=== PATIENT | female | born 1935 | race Caucasian/White ===

== ENCOUNTER → 2016-12-03 | Outpatient (CLI) | payer MEDICARE, OTHER ==
--- NOTE | 2016-12-06 13:16 | Diagnostic Imaging Report ---
Left breast mammogram. The current study was also evaluated with a Computer Aided Detection (CAD) system. INDICATION: Screening. No current complaints stated on the questionnaire. COMPARISON: 12/09/2015. The patient had right mastectomy. FINDINGS: The right breast is composed of scattered fibroglandular densities. There are scattered benign-appearing calcifications. Allowing for technique and positional differences, no suspicious change is seen. IMPRESSION: No significant change. ACR BI-RADS Category 2: Benign findings. Result letter will be mailed to the patient. Note: At least 10% of breast cancer is not imaged by mammography. Dictated by: Dictated on workstation # [id number]
== END ==
LOC: RAD 13:20
PROVIDERS: ATTEND Internal Medicine
DX: Z12.31 Encounter for screening mammogram for malignant neoplasm of breast (principal)

== ENCOUNTER 2017-10-21 11:25 | Emergency (ER) | payer MEDICARE, OTHER ==
[~2017-10-21] VITALS: Ht 160 cm; Wt 68.9 kg
--- OUTSIDE RECORDS SUMMARY | 2017-10-21 11:31 | XMS REPORT | Continuity of Care Document ---
Author Author [facility] Organization [facility] Address Unknown Phone Unavailable Allergies Medications Problems Date Dx Coded Attending Type Code Diagnosis Diagnosed By 11/09/2014 CODY CHIN APRN Ot V76.12 11/09/2014 Ot V76.12 11/09/2014 Ot 174.9 11/09/2014 Ot V76.11 11/09/2014 Ot 174.9 11/09/2014 Ot V76.11 11/09/2014 Ot 733.90 11/09/2014 Ot V76.12 11/09/2014 NICOLE OROURKE MD Ot V76.12 11/09/2014 CODY CHIN APRN Ot V76.12 11/25/2014 CODY CHIN APRN Ot V76.12 12/08/2015 Ot 174.9 12/08/2015 Ot V76.11 12/08/2015 Ot 174.9 12/08/2015 Ot V76.11 12/08/2015 Ot 733.90 12/08/2015 Ot V76.12 12/08/2015 NICOLE OROURKE MD Ot V76.12 12/08/2015 CODY CHIN APRN Ot V76.12 12/28/2015 NICOLE OROURKE MD Ot Z12.31 12/03/2016 Ot 174.9 MALIGN NEOPL BREAST NOS 12/03/2016 Ot V76.11 SCRN MAMMO-HIGH RISK PT, MALIGNANT NEOPL 12/03/2016 Ot 733.90 BONE CARTILAGE DIS NOS 12/03/2016 Ot V76.12 OTH SCREEN MAMMO-MALIGN NEOPLASM OF [place] 12/03/2016 NICOLE OROURKE MD Ot V76.12 OTH SCREEN MAMMO-MALIGN NEOPLASM OF [place] 12/03/2016 CODY CHIN APRN Ot V76.12 OTH SCREEN MAMMO-MALIGN NEOPLASM OF [place] 12/03/2016 NICOLE OROURKE MD Ot Z12.31 ENCNTR SCREEN MAMMOGRAM FOR MALIGNANT NE 12/03/2016 NICOLE OROURKE MD Ot Z12.31 ENCNTR SCREEN MAMMOGRAM FOR MALIGNANT NE 12/04/2016 NICOLE OROURKE MD Ot Z12.31 ENCNTR SCREEN MAMMOGRAM FOR MALIGNANT NE 12/04/2016 NICOLE OROURKE MD Ot Z12.31 ENCNTR SCREEN MAMMOGRAM FOR MALIGNANT NE 12/24/2016 NICOLE OROURKE MD Ot Z12.31 ENCNTR SCREEN MAMMOGRAM FOR MALIGNANT NE Procedures Results Encounters ACCT No. Visit Date/Time Discharge Status Pt. Type Provider Facility Loc./Unit Complaint [id number] 12/03/2016 13:20:00 2016 23:59:59 CLS Outpatient NICOLE OROURKE MD [facility] RAD SCREENING [id number] 12/08/2015 09:47:00 2015 23:59:59 CLS Outpatient NICOLE ORUORKE MD [facility] RAD SCREENING [id number] 11/04/2014 11:16:00 2013 23:59:59 CLS Outpatient CODY CHIN APRN [facility] RAD SCREENING [id number] 11/02/2013 10:52:00 2012 23:59:59 CLS Outpatient NICOLE OROURKE MD [facility] RAD ROUTINE [id number] 09/15/2012 09:49:00 Document Registration [id number] 11/29/2011 10:09:00 Document Registration [id number] 09/09/2011 11:18:00 Document Registration [id number] 08/30/2010 13:31:00 Document Registration [id number] 08/25/2009 13:27:00 Document Registration
[2017-10-21] MEDS ORDERED: TETANUS,DIPTH,PERTUSS P/F (BOOSTRIX) 0.5 ML VIAL IM STA (11:37)
[2017-10-21] MEDS ORDERED: SIMV20TA3 PO (11:55)
[2017-10-21] MEDS ORDERED: AMLO5TAB4 PO (11:55)
[2017-10-21] MEDS ORDERED: METO50TA15 PO (11:55)
--- NOTE | 2017-10-21 11:59 | ED Fall/Injury ---
General Chief Complaint: Trauma-Non Activation Stated Complaint: FALL/HEAD INJ Nursing Triage Note: PT TO [facility] WITH A FALL DOWN 2-3 STEPS, CC OF HEMATOMA ON HEAD AND RT HAND AND SHOULDER PAIN, LAC TO RT HAND. DENIES LOC, DENIES NECK PAIN, IN C-COLLAR ON ARRIVAL. Source: patient Exam Limitations: no limitations History of Present Illness Time seen by provider: 11:42 Initial Comments Here with report of fall at home. She apparently tripped on the last couple of steps off her porch and landed on the ground. She has deformed right middle finger as well as a large hematoma on her head. Complains of right shoulder pain. Denies loss of consciousness or pain in the neck. She does have a c- collar in place. Denies hip or pelvis pain, back pain, chest pain or abdominal pain. Location Injury Occurred: HOME Occurred: just prior to arrival (30 minutes ago) Severity: moderate Injuries/Pain Location: head, upper extremity Context: tripped Loss of Consciousness: no loss of consciousness Associated Symptoms (Fall): No Abdominal Pain, No Chest Pain, No Confusion, Headache, No Muscle Spasms, No Neck Pain, No Shortness of Air, No Slurred Speech , No Vision Changes Allergies and Home Medications Allergies Coded Allergies: No Known Drug Allergies (Unverified , 10/21/17) Home Medications Amlodipine Besylate 5 Mg Tablet, 5 MG PO DAILY, (Reported) Lisinopril/Hydrochlorothiazide 1 Each Tablet, 1 EACH PO DAILY, (Reported) Metoprolol Tartrate 50 Mg Tablet, 50 MG PO DAILY, (Reported) Simvastatin 20 Mg Tablet, 20 MG PO DAILY, (Reported) Constitutional: see HPI, No chills, No fever Eyes: No Symptoms Reported Ears, Nose, Mouth, Throat: no symptoms reported Respiratory: no symptoms reported Cardiovascular: no symptoms reported, No chest pain, No edema Gastrointestinal: No nausea, No vomiting Genitourinary: no symptoms reported Musculoskeletal: see HPI, joint pain, muscle pain, No muscle weakness Skin: change in color, lesions (right middle finger) Past Aqnjbiz-Usacap-Vxplkd Hx Patient Social History Alcohol Use: Rarely Uses Alcohol Beverage of Choice: Wine Recreational Drug Use: No Smoking Status: Never a Smoker Recent Foreign Travel: No Contact w/Someone Who Travel: No Recent Infectious Disease Expo: No Recent Hopitalizations: No Physical Abuse: No Sexual Abuse: No Mistreated: No Fear: No Immunizations Up To Date Date of Pneumonia Vaccine: Aug 21, 2016 Date of Influenza Vaccine: Aug 20, 2017 Seasonal Allergies Seasonal Allergies: No Surgeries History of Surgeries: Yes (RT MASTECTOMY) Respiratory History of Respiratory Disorde: No Cardiovascular History of Cardiac Disorders: Yes Cardiac Disorders: Hypertension Neurological History of Neurological Disord: No Reproductive System : No Genitourinary History of Genitourinary Disor: No Gastrointestinal History of Gastrointestinal Di: No Musculoskeletal History of Musculoskeletal Dis: No Endocrine History of Endocrine Disorders: No HEENT History of HEENT Disorders: No Cancer History of Cancer: Yes Cancer: Breast Psychosocial History of Psychiatric Problem: No Suicide Risk Score: 0 Integumentary History of Skin or Integumenta: No Reviewed Nursing Assessment Reviewed/Agree w Nursing PMH: Yes Family Medical History Significant Family History: No Pertinent Family Hx Physical Exam Vital Signs Vital Sign - Last 12Hours 10/21/17 11:41 Temp 96.9 Pulse 51 Resp 20 B/P (MAP) 136/71 (92) O2 Delivery Room Air Capillary Refill : Less Than 3 Seconds General Appearance: WD/WN, no apparent distress HEENT: PERRL/EOMI, pharynx normal Neck: non-tender, supple, normal inspection, other (c-collar remains in place before and after exam.) Cardiovascular: regular rate, rhythm, no murmur Respiratory: lungs clear, normal breath sounds Peripheral Pulses: 2+ Dorsalis Pedis (R), 2+ Left Dors-Pedis (L), 2+ Radial Pulses (R), 2+ Radial Pulses (L) Gastrointestinal: non tender, soft Back: normal inspection, no CVA tenderness, no vertebral tenderness Extremities: no pedal edema, pelvis stable, other (deformity to the right middle finger at the IP joint. Tenderness to palpation to the right shoulder area but not along the humerus or forearm bones. No obvious deformity.) Neurologic/Psychiatric: alert, oriented x 3 Skin: normal color, warm/dry, other (1 cm laceration to the palmar aspect of the right middle finger at the IP joint. Deformity noted.) Pall Mall Coma Score Best Eye Response: (4) Open Spontaneously Best Verbal Response: (5) Oriented Best Motor Response: (6) Obeys Commands Splinting and Joint Reduction : Pre-Proc Neuro Vasc Exam: normal Post-Proc Neuro Vasc Exam: normal Progress Reduced the subluxation of the right third finger at the IP joint Reduction Attempts: 1 Pre-Procedure NV Exam: Yes post joint reduction film: joint reduced Progress Tolerated procedure well. Patient also has third and fourth metacarpal fracture. Splint applied to the hand and fingers. Brian wrap: Yes Arm Sling: Large Hand-Made Type: orthoglass Splint Application: Short Arm Progress/Results/Core Measures Results/Orders My Orders Orders - MARY CRUZ MD Shoulder, Right, 3 Views (10/21/17 11:37) Hand, Right, 3 Views (10/21/17 11:37) Ct Head/Cervical Spine Wo (10/21/17 11:37) Dipht,Pertuss(Acell),Tet Adult (Boostrix (10/21/17 11:37) Lidocaine 2% Injection 20 Ml (Xylocaine (10/21/17 13:22) Ceftriaxone Injection (Rocephin Injectio (10/21/17 13:30) Lidocaine 1% Injection (Xylocaine 1% Inj (10/21/17 13:30) Medications Given in ED Current Medications Medications Dose Ordered Sig/Kaitlin Route Start Time Stop Time Status Last Admin Dose Admin Ceftriaxone Sodium 1,000 mg ONCE ONCE IM 10/21/17 13:30 10/21/17 13:31 DC 10/21/17 13:39 1,000 MG Lidocaine HCl 2.1 ml ONCE ONCE INJ 10/21/17 13:30 10/21/17 13:31 DC 10/21/17 13:39 2.1 ML Vital Signs/I&O Vital Sign - Last 12Hours 10/21/17 10/21/17 10/21/17 10/21/17 11:41 12:25 13:39 13:39 Temp 96.9 96.9 96.9 96.9 Pulse 51 Resp 20 B/P (MAP) 136/71 (92) O2 Delivery Room Air 10/21/17 13:42 Temp 96.9 Blood Pressure Mean: 92 Progress Note : Progress Note Seen and evaluated. CT head and neck ordered. X-ray right shoulder and hand ordered. Tetanus updated. Monitor patient. X-rays complete. 1420: X-rays reviewed. Dislocation subluxation noted. Digital block to right third finger with 2 percent lidocaine completed. Hematoma block of fractures in the mid hand also done with total of approximately 8 mL of lidocaine. Dislocation easily reduced. Short arm gutter splint placed with fingers and 90 flexion and hand slightly flexed. Sling applied. Patient much more comfortable now. No significant findings on CT. Patient does have sinusitis of the right maxillary sinus and has been suffering from this for over a week. Rocephin 1 g IM given in. Patient did have small wound on the dorsal surface that was a flap. This was cleaned with Betasept and covered with antibiotic and dressing prior to splinting. Due to the wound proximity to the open joint, antibiotics are indicated. I did choose Rocephin due to the fact that she has coexisting sinusitis and will need treatment for that. All the findings and concerns were discussed with the patient and family who agree. Discharged home with return precautions. Patient verbalize understanding instructions and agreement with plan. Diagnostic Imaging Diagonstic Imaging: Xray Plain Films/CT/US/NM/MRI: hand Comments [facility]. [place], [place] NAME: JAS GARCIA [facility] REC#: [id number] PT STATUS: REG ER : 1935 PHYSICIAN: MARY CRUZ MD ADMIT DATE: 10/21/17/ER Draft Date of Exam:10/21/17 HAND, RIGHT, 3 VIEWS INDICATION: Fall with right hand injury. TECHNIQUE: AP, oblique, and lateral views of the right hand were obtained. FINDINGS: There are slightly displaced oblique fractures through the mid shafts of the third and fourth metacarpal bones. No definite intra-articular extension is identified. Note is made of advanced degenerative change within the interphalangeal joints of all digits with ulnar subluxation of the third middle phalanx at the proximal interphalangeal joint. No other definite acute fracture or malalignment is seen. IMPRESSION: Minimally displaced oblique fractures of the third and fourth metacarpals. Ulnar subluxation of the third middle phalanx. 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 Dictated on workstation # [id number] Dict: 10/21/17 1208 Trans: 10/21/17 1220 [id number] Interpreted by: JOSE MCGUIRE MD Electronically signed by: Diagonstic Imaging: Xray Plain Films/CT/US/NM/MRI: other Comments [facility]. [place], [place] NAME: JSA GARCIA [facility] REC#: [id number] PT STATUS: REG ER : 1935 PHYSICIAN: MARY CRUZ MD ADMIT DATE: 10/21/17/ER Draft Date of Exam:10/21/17 SHOULDER, RIGHT, 3 VIEWS EXAMINATION: Three views of the right shoulder. INDICATION: Fall. FINDINGS: There is no fracture, dislocation or radiopaque foreign body. There is acromioclavicular joint osteoarthritis with joint narrowing and subchondral sclerosis seen. Small inferior osteophytes are seen. Mild degenerative change in the glenohumeral joint is noted. Surgical clips in the right axilla seen. IMPRESSION: Degenerative changes. No fracture seen. Dictated on workstation # [id number] Dict: 10/21/17 1209 Trans: 10/21/17 1222 [facility] [id number] Interpreted by: HUSSEIN MEDLEY MD Electronically signed by: Diagonstic Imaging: CT Plain Films/CT/US/NM/MRI: c-spine, head Comments [facility]. [place], [place] NAME: JAS GARCIA [facility] REC#: [id number] PT STATUS: REG ER : 1935 PHYSICIAN: MARY CRUZ MD ADMIT DATE: 10/21/17/ER Draft Date of Exam:10/21/17 CT HEAD/CERVICAL SPINE WO PROCEDURE: CT head and CT cervical spine without contrast. TECHNIQUE: Multiple contiguous axial images were obtained through the brain and cervical spine without the use of intravenous contrast. Sagittal and coronal reformations through the cervical spine were then performed. INDICATION: Head injury. COMPARISON: None. FINDINGS: CT HEAD: No intracranial hemorrhage, mass effect, hydrocephalus or extra-axial fluid collections. No CT evidence of acute infarction. Intracranial vascular calcifications. Scalp contusion overlying the right frontal bone. No fractures. Mild mucosal thickening in the ethmoid and maxillary sinuses. Mastoids are clear. CT CERVICAL SPINE: Mild anterolisthesis of C3 on C4 and C4 on C5. Alignment is otherwise unremarkable. No fractures. Vertebral body heights are preserved. There are advanced degenerative endplate changes at C5-C6. Moderate to advanced diffuse facet arthropathy. No high-grade spinal canal narrowing is evident on this noncontrast exam. Mild atherosclerotic calcifications including the carotid bifurcations. IMPRESSION: 1. Scalp contusion overlying the right frontal bone. No fractures. No acute intracranial CT findings. 2. No acute cervical spine CT findings. Moderate to advanced spondylotic changes. Dictated on workstation # [id number] Dict: 10/21/17 1202 Trans: 10/21/17 1219 TS [id number] Interpreted by: LIDA KINGSTON MD Electronically signed by: Departure Impression Impression: Primary Impression: Head injury Qualified Codes: S09.90XA - Unspecified injury of head, initial encounter Additional Impressions: Right shoulder strain Qualified Codes: S46.911A - Strain of unspecified muscle, fascia and tendon at shoulder and upper arm level, right arm, initial encounter Right hand fracture Qualified Codes: S62.91XA - Unspecified fracture of right wrist and hand, initial encounter for closed fracture Dislocation of right ring finger Qualified Codes: S63.254A - Unspecified dislocation of right ring finger, initial encounter Sinusitis chronic, frontal Disposition: 01 HOME, SELF-CARE Condition: Improved Departure-Patient Inst. Decision time for Depature: 14:27 Referrals: DIANNE [place] JOHN D MD (PCP/Family) Primary Care Physician JEF YU MD Patient Instructions: Finger Dislocation (DC), Hand Fracture (DC), Minor Head Injury (DC), Muscle Strain (DC), Shoulder Impingement (DC) Add. Discharge Instructions: All discharge instructions reviewed with patient and/or family. Voiced understanding. You may take acetaminophen/Tylenol 650 mg every 6 hours as needed for pain. You may take the pain pill prescribed if that is not helping with the pain. Do not exceed more than 4000 mg of Tylenol in a 24-hour period. Follow-up with your doctor for recheck regarding the sinus infection. Follow-up with orthopedist of your choice or the one listed for recheck and further evaluation of the hand and shoulder. Use sling for comfort over the next several days as needed. You may use ice packs to affected areas to reduce swelling. Elevate the hand and arm to reduce swelling. Return for worse pain, swelling, weakness , breathing problems or other concerns as needed. Scripts Hydrocodone/Acetaminophen (Hydrocodon -Acetaminophen 5-325) 1 Each Tablet 1 EACH PO Q6H Y for PAIN-MODERATE, #10 TAB 0 Refills Prov: MARY CRUZ MD 10/21/17 Cefdinir (Cefdinir) 300 Mg Capsule 300 MG PO BID, #14 CAP 0 Refills Prov: MARY CRUZ MD 10/21/17 MARY CRUZ MD Oct 21, 2017 11:59
[2017-10-21] MEDS ORDERED: LISI1TAB6 PO (12:08)
--- NOTE | 2017-10-21 12:19 | Diagnostic Imaging Report ---
PROCEDURE: CT head and CT cervical spine without contrast. TECHNIQUE: Multiple contiguous axial images were obtained through the brain and cervical spine without the use of intravenous contrast. Sagittal and coronal reformations through the cervical spine were then performed. INDICATION: Head injury. COMPARISON: None. FINDINGS: CT HEAD: No intracranial hemorrhage, mass effect, hydrocephalus or extra-axial fluid collections. No CT evidence of acute infarction. Intracranial vascular calcifications. Scalp contusion overlying the right frontal bone. No fractures. Mild mucosal thickening in the ethmoid and maxillary sinuses. Mastoids are clear. CT CERVICAL SPINE: Mild anterolisthesis of C3 on C4 and C4 on C5. Alignment is otherwise unremarkable. No fractures. Vertebral body heights are preserved. There are advanced degenerative endplate changes at C5-C6. Moderate to advanced diffuse facet arthropathy. No high-grade spinal canal narrowing is evident on this noncontrast exam. Mild atherosclerotic calcifications including the carotid bifurcations. IMPRESSION: 1. Scalp contusion overlying the right frontal bone. No fractures. No acute intracranial CT findings. 2. No acute cervical spine CT findings. Moderate to advanced spondylotic changes. Dictated by: Dictated on workstation # [id number]
--- NOTE | 2017-10-21 12:20 | Diagnostic Imaging Report ---
INDICATION: Fall with right hand injury. TECHNIQUE: AP, oblique, and lateral views of the right hand were obtained. FINDINGS: There are slightly displaced oblique fractures through the mid shafts of the third and fourth metacarpal bones. No definite intra-articular extension is identified. Note is made of advanced degenerative change within the interphalangeal joints of all digits with ulnar subluxation of the third middle phalanx at the proximal interphalangeal joint. No other definite acute fracture or malalignment is seen. IMPRESSION: Minimally displaced oblique fractures of the third and fourth metacarpals. Ulnar subluxation of the third middle phalanx. 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 Dictated by: Dictated on workstation # [id number]
--- NOTE | 2017-10-21 12:22 | Diagnostic Imaging Report ---
EXAMINATION: Three views of the right shoulder. INDICATION: Fall. FINDINGS: There is no fracture, dislocation or radiopaque foreign body. There is acromioclavicular joint osteoarthritis with joint narrowing and subchondral sclerosis seen. Small inferior osteophytes are seen. Mild degenerative change in the glenohumeral joint is noted. Surgical clips in the right axilla seen. IMPRESSION: Degenerative changes. No fracture seen. Dictated by: Dictated on workstation # [id number]
[2017-10-21] MEDS ORDERED: LIDOCAINE 2% 20 ML (XYLOCAINE) VIAL INJ STA (13:22)
[2017-10-21] MEDS ORDERED: cefTRIAXone 1 GM (ROCEPHIN) VIAL IM ONE (13:30)
[2017-10-21] MEDS ORDERED: LIDOCAINE 1% INJ 20 ML (XYLOCAINE) VIAL INJ ONE (13:30)
[2017-10-21] MEDS ORDERED: CEFD300C3 PO (14:31)
[2017-10-21] MEDS ORDERED: HYDR-3812 PO (14:31)
[2017-10-21 14:42] VITALS: BP 156/92
== END 2017-10-21 14:42 | disposition home or self-care (01) ==
LOC: EDUNIT# 11:25 → ER 11:27
DX: S09.90XA Unspecified injury of head, initial encounter (principal); S62.392A Other fracture of third metacarpal bone, right hand, initial encounter for closed fracture; S53.131A Medial subluxation of right ulnohumeral joint, initial encounter; S62.622A Displaced fracture of middle phalanx of right middle finger, initial encounter for closed fracture; S62.91XA Unspecified fracture of right hand, initial encounter for closed fracture; S46.911A Strain of unspecified muscle, fascia and tendon at shoulder and upper arm level, right arm, initial encounter; S63.254A Unspecified dislocation of right ring finger, initial encounter; J32.1 Chronic frontal sinusitis; I10 Essential (primary) hypertension; Z23 Encounter for immunization; W10.8XXA Fall (on) (from) other stairs and steps, initial encounter; Y92.008 Other place in unspecified non-institutional (private) residence as the place of occurrence of the external cause
CPT/HCPCS: 29125; 70450; 72125; 73030; 73130; 90715

== ENCOUNTER → 2018-01-15 | Outpatient (CLI) | payer MEDICARE, OTHER ==
[~2018-01-15] MED LIST: ACHD5005 PO; AMLO5TAB4 PO; CEFD300C3 PO; LISI1TAB6 PO; METO50TA15 PO; SIMV20TA3 PO
--- NOTE | 2018-01-15 19:20 | Diagnostic Imaging Report ---
INDICATION: Routine screening. The current study was also evaluated with a Computer Aided Detection (CAD) system. Comparison is made with prior studies from 12/03/2016 and 12/08/2015. FINDINGS: Mild density in the left breast is seen. The parenchymal pattern is stable. No dominant mass or malignant-appearing microcalcifications are seen. There are benign calcifications in the left breast. The left axilla is unremarkable. IMPRESSION: No mammographic features suspicious for malignancy are identified. ACR BI-RADS Category 2: Benign findings. Result letter will be mailed to the patient. Note: At least 10% of breast cancer is not imaged by mammography. Dictated by: Dictated on workstation # [id number]
== END ==
LOC: RAD 09:27
PROVIDERS: ATTEND Nurse Practitioner
DX: Z12.31 Encounter for screening mammogram for malignant neoplasm of breast (principal)

== ENCOUNTER → 2019-01-18 | Outpatient (CLI) | payer MEDICARE, OTHER ==
--- NOTE | 2019-01-18 11:52 | Diagnostic Imaging Report ---
INDICATION: Routine screening. COMPARISON: 01/15/2018 and 12/03/2016. TECHNIQUE: 2D and 3D unilateral left screening mammography was performed with CAD. FINDINGS: Scattered fibroglandular densities in the left breast are noted. Benign calcifications are noted. The parenchymal pattern is stable. No mass or malignant appearing microcalcifications are seen. The left axilla is unremarkable. IMPRESSION: No mammographic features suspicious for malignancy are identified. ACR BI-RADS Category 2: Benign findings. Result letter will be mailed to the patient. Note: At least 10% of breast cancer is not imaged by mammography. Dictated by: Dictated on workstation # [id number]
== END ==
LOC: RAD 10:09
PROVIDERS: ATTEND Nurse Practitioner
DX: Z12.31 Encounter for screening mammogram for malignant neoplasm of breast (principal)

== ENCOUNTER 2019-06-02 06:11 | Outpatient (CLI) | payer MEDICARE, OTHER ==
[~2019-06-02] VITALS: Ht 162.6 cm; Wt 74.8 kg
[2019-06-02] MEDS ORDERED: GLUC1CAP37 PO (13:06)
[2019-06-02] MEDS ORDERED: CALC-235 PO (13:06)
[2019-06-02] MEDS ORDERED: LISI-556 PO (13:06)
== END 2019-06-02 13:10 | disposition home or self-care (01) ==
LOC: PREOP 06:11
PROVIDERS: ATTEND Specialist
DX: Z01.818 Encounter for other preprocedural examination (principal)

== ENCOUNTER 2019-06-04 07:22 | Day surgery (SDC) | payer MEDICARE, OTHER ==
[~2019-06-04] VITALS: Ht 162.6 cm; Wt 74.8 kg
[~2019-06-04 07:22] MED LIST changes: +CALC-235 PO; +GLUC1CAP37 PO; +LISI-556 PO
[2019-06-04 07:25] VITALS: BP 169/83
[2019-06-04] MEDS: TROPICAMIDE 1% OPH SOLN (MYDRIACYL) 15 ML BTL OU PRN ×3 (07:37→08:07)
[2019-06-04] MEDS: TETRACAINE 0.5% OPHTH SOLN 4 ML BTL (SINGLE DOSE ONLY) OU PRN ×3 (07:37→08:07)
[2019-06-04] MEDS: PHENYLEPHRINE 10% OPHTH (NEO-SYN) 5 ML BTL OU PRN ×3 (07:37→08:07)
--- NOTE | 2019-06-04 07:58 | Ophthalmologist Pre-Op Note ---
Pre-Operative Progress Note H&P Reviewed The H&P was reviewed, patient examined and no changes noted. Date H&P Reviewed: Jun 04, 2019 Time H&P Reviewed: 07:58 Pre-Op Dx Secondary Cataract, Bilateral Eyes RONI HAM MD Jun 04, 2019 07:58
[2019-06-04 08:37] VITALS: BP 169/83
--- NOTE | 2019-06-04 08:41 | Ophthalmology Operative Report ---
YAG Capsulotomy PREOPERATIVE DIAGNOSIS: Secondary Cataract Bilateral POSTOPERATIVE DIAGNOSIS: Secondary Cataract Bilateral PROCEDURE: YAG Capsulotomy, Bilateral SURGEON: Vinicio Ham ANESTHESIA: Topical anesthesia COMPLICATIONS: None ESTIMATED BLOOD LOSS: Minimal DESCRIPTION OF PROCEDURE: After proper informed consent was obtained, the patient's, a 83 female , received one drop of Tropicamide and one drop of Tetracaine in each eye. The patient was then placed at the YAG laser and using a power of [3.2 ] millijoules and bursts [24 ] right eye and [ 18] left eye were used to fashion a central capsulotomy. The patient tolerated the procedure well without complications. VINICIO HAM MD Jun 04, 2019 08:40
--- OUTSIDE RECORDS SUMMARY | 2019-06-04 18:00 | XMS REPORT | Continuity of Care Document ---
Author Organization Unknown Address Unknown Allergies Active Description Code Type Severity Reaction Onset Reported/Identified Relationship to Patient Clinical Status Yes No Known Drug Allergies [id number] Drug Allergy Unknown N/A 10/21/2017 Medications There is no data. Problems Date Dx Coded Attending Type Code [...] DIS NOS 12/03/2016 Ot V76.12 OTH SCREEN MAMMO- MALIGN NEOPLASM OF [place] 12/03/2016 NICOLE OROURKE MD Ot V76.12 OTH SCREEN MAMMO-MALIGN NEOPLASM OF [place] 12/03/2016 CODY CHIN APRN Ot V76.12 OTH SCREEN MAMMO-MALIGN NEOPLASM OF [place] 12/03/2016 NICOLE OROURKE MD Ot Z12.31 ENCNTR SCREEN MAMMOGRAM FOR MALIGNANT NE 12/03/2016 NICOLE OROURKE MD, Ot Z12.31 ENCNTR SCREEN MAMMOGRAM FOR MALIGNANT NE 12/04/2016 NICOLE OROURKE MD, Ot Z12.31 ENCNTR SCREEN MAMMOGRAM FOR MALIGNANT NE 12/04/2016 NICOLE OROURKE MD, Ot Z12.31 ENCNTR SCREEN MAMMOGRAM FOR MALIGNANT NE 12/24/2016 NICOLE OROURKE MD, Ot Z12.31 ENCNTR SCREEN MAMMOGRAM FOR MALIGNANT NE 10/21/2017 MARY CRUZ MD, Ot I10 ESSENTIAL (PRIMARY) HYPERTENSION 10/21/2017 MARY CRUZ MD, Ot J32.1 CHRONIC FRONTAL SINUSITIS 10/21/2017 MARY CRUZ MD, Ot S09.90XA UNSPECIFIED INJURY OF HEAD, INITIAL ENCO 10/21/2017 MARY CRUZ MD, Ot S46.911A STRAIN UNSP MUSC/FASC/TEND AT SHLDR/UP A 10/21/2017 MARY CRUZ MD Ot S53.131A MEDIAL SUBLUXATION OF RIGHT ULNOHUMERAL 10/21/2017 MARY CRUZ MD Ot S62.392A OTH FRACTURE OF THIRD METACARPAL BONE, R 10/21/2017 MARY CRUZ MD Ot S62.622A DISPLACED FRACTURE OF MIDDLE PHALANX OF 10/21/2017 MARY CRUZ MD Ot S62.91XA UNSP FRACTURE OF RIGHT WRIST AND HAND, I 10/21/2017 MARY CRUZ MD Ot S63.254A UNSPECIFIED DISLOCATION OF RIGHT RING FI 10/21/2017 MARY CRUZ MD Ot W10.8XXA FALL (ON) (FROM) OTHER STAIRS AND STEPS, 10/21/2017 MARY CRUZ MD Ot Y92.[address] IN UNSP NON-INSTITUT (PRIVATE) 10/21/2017 MARY CRUZ MD Ot Z23 ENCOUNTER FOR IMMUNIZATION 01/19/2018 CODY CHIN APRN Ot Z12.31 ENCNTR SCREEN MAMMOGRAM FOR MALIGNANT NE 02/04/2018 CODY CHIN APRN Ot Z12.31 ENCNTR SCREEN MAMMOGRAM FOR MALIGNANT NE 01/25/2019 CODY CHIN APRN Ot Z12.31 ENCNTR SCREEN MAMMOGRAM FOR MALIGNANT NE 02/10/2019 CODY CHIN APRN Ot Z12.31 ENCNTR SCREEN MAMMOGRAM FOR MALIGNANT NE 06/03/2019 RONI HAM MD Ot Z01.818 ENCOUNTER FOR OTHER PREPROCEDURAL EXAMIN Procedures There is no data. Results There is no data. Encounters ACCT No. Visit Date/Time Discharge Status Pt. Type Provider Facility Loc./Unit Complaint [id number] 06/02/2019 06:11:00 06/02/2019 13:10:00 DIS Outpatient RONI HAM MD [facility] PREOP YAG [id number] 01/18/2019 10:15:00 01/18/2019 23:59:59 CLS Outpatient CODY CHIN APRN [facility] RAD SCREENING [id number] 01/15/2018 09:27:00 01/15/2018 23:59:59 CLS Outpatient CODY CHIN APRN [facility] RAD SCREENING [id number] 10/21/2017 11:27:00 10/21/2017 14:42:00 DIS Emergency MARY CRUZ MD [facility] ER FALL/HEAD INJ [id number] 12/03/2016 13:20:00 12/03/2016 23:59:59 CLS Outpatient NICOLE OROURKE MD [facility] RAD SCREENING [id number] 12/08/2015 09:47:00 12/08/2015 23:59:59 CLS Outpatient NICOLE OROURKE MD [facility] RAD SCREENING [id number] 11/04/2014 11:16:00 11/04/2014 23:59:59 CLS Outpatient CODY CHIN [employer] [facility] RAD SCREENING [id number] 11/02/2013 10:52:00 11/02/2013 23:59:59 CLS Outpatient NICOLE OROURKE MD [facility] RAD ROUTINE [id number] 06/04/2019 13:15:00 PEN Preadmit RONI HAM MD [facility] SDC YAG [id number] 09/15/2012 09:49:00 Document Registration [id number] 11/29/2011 10:09:00 Document Registration [id number] 09/09/2011 11:18:00 Document Registration [id number] 08/30/2010 13:31:00 Document Registration [id number] 08/25/2009 13:27:00 Document Registration [email or web address] 11/04/2014 11:16:46 ACT Document Registration
== END 2019-06-04 08:37 | disposition home or self-care (01) ==
LOC: SDC 07:22
PROVIDERS: ATTEND Specialist
DX: H26.493 Other secondary cataract, bilateral (principal); M19.90 Unspecified osteoarthritis, unspecified site; Z79.899 Other long term (current) drug therapy; Z90.11 Acquired absence of right breast and nipple; Z85.3 Personal history of malignant neoplasm of breast

== ENCOUNTER → 2020-04-04 | Outpatient (CLI) | payer MEDICARE, OTHER ==
[~2020-04-04] MED LIST changes: +LISI1TAB29 PO; -LISI1TAB6 PO; +SIMV20TA26 PO; -SIMV20TA3 PO
--- NOTE | 2020-04-04 12:39 | Diagnostic Imaging Report ---
INDICATION: Routine screening. COMPARISON: 01/18/2019 and 01/15/2018. TECHNIQUE: Unilateral left 2D and 3D screening mammography was performed with CAD. FINDINGS: Scattered fibroglandular densities in the left breast are noted. Benign calcifications in the left breast are again noted. No mass or malignant appearing microcalcifications are seen. The left axilla is unremarkable. IMPRESSION: No mammographic features suspicious for malignancy are identified. ACR BI-RADS Category 2: Benign findings. Result letter will be mailed to the patient. Note: At least 10% of breast cancer is not imaged by mammography. Dictated by: Dictated on workstation # [id number]
== END ==
LOC: RAD 09:52
PROVIDERS: ATTEND Nurse Practitioner
DX: Z12.31 Encounter for screening mammogram for malignant neoplasm of breast (principal)
CPT/HCPCS: 77063

== ENCOUNTER → 2021-05-28 | Outpatient (CLI) | payer MEDICARE, OTHER ==
[~2021-05-28] MED LIST changes: -LISI-556 PO; +LISI-729 PO
--- NOTE | 2021-05-28 16:42 | Diagnostic Imaging Report ---
INDICATION: Routine screening. COMPARISON: 04/04/2020 and 01/18/2019. TECHNIQUE: 2D and 3D unilateral left screening mammography was performed with CAD. FINDINGS: Scattered fibroglandular densities in the left breast are noted. No mass or malignant appearing microcalcifications are seen. There are benign calcifications in the left breast. The left axilla is unremarkable. IMPRESSION: No mammographic features suspicious for malignancy are identified. ACR BI-RADS Category 2: Benign findings. Result letter will be mailed to the patient. Note: At least 10% of breast cancer is not imaged by mammography. Dictated by: Dictated on workstation # [id number]
== END ==
LOC: RAD 14:30
PROVIDERS: ATTEND Internal Medicine
DX: Z12.31 Encounter for screening mammogram for malignant neoplasm of breast (principal)
CPT/HCPCS: 77063